=== PATIENT | female | born 1985 | race African-American/Black ===

== ENCOUNTER 2019-12-20 09:49 | Emergency (ER) | payer OTHER ==
[2019-12-20 10:08] VITALS: BMI 30.4
[2019-12-20] MEDS ORDERED: KETOROLAC TROMETHAMINE 60 MG/2 ML VIAL IM ONE (11:07)
[2019-12-20] MEDS ORDERED: diazePAM 2 MG TABLET PO ONE (11:07)
[2019-12-20] MEDS ORDERED: LIDOCAINE 5% TOPICAL PATCH TP ONE (11:07)
[2019-12-20] MEDS ORDERED: KETOROLAC TROMETHAMINE 30 MG/1 ML VIAL ONE (11:11)
[2019-12-20] MEDS ORDERED: diazePAM 2 MG TABLET ONE (11:11)
[2019-12-20] MEDS ORDERED: LIDOCAINE 5% TOPICAL PATCH ONE (11:11)
--- NOTE | 2019-12-20 12:38 | PDOC ---
History of Present Illness - General Chief Complaint: Back Pain Stated Complaint: BACK PAIN Time Seen by Provider: 12/20/19 10:06 History Source: Patient Exam Limitations: No Limitations Past History - Travel History Traveled outside of the country in the last 30 days: No Close contact w/someone who was outside of country & ill: No - Medical History Allergies/Adverse Reactions: Allergies Allergy/AdvReac Type Severity Reaction Status Date / Time shrimp AdvReac Severe Difficulty Verified 12/20/19 10:26 Breathing Home Medications: Ambulatory Orders Meloxicam [Mobic (Nf) -] 15 mg PO ASDIR 12/20/19 Methocarbamol [Robaxin -] 500 mg PO BID #14 tablet 12/20/19 Naproxen [Naprosyn -] 500 mg PO BID PRN 12/20/19 Asthma: Yes COPD: No GI Disorders: Yes (REFLUX) - Reproductive History Is Patient Now?: No - Psycho-Social/Smoking History Smoking Status: No Smoking History: Never smoked Number of Cigarettes Smoked Daily: 0 - Substance Abuse Hx (Audit-C & DAST Scrn) How often the patient has a drink containing alcohol: Monthly or less Score: In Men: 4 or > Positive; In Women: 3 or > Positive: 1 Screen Result (Pos requires Nsg. Audit-10AR): Negative In the last yr the pt used illegal drug/Rx for NonMed reason: No Score: Yes response is considered Positive: 0 Screen Result (Positive result requires Nsg. DAST-10): Negative Review of Systems - Review of Systems Able to Perform ROS?: Yes Comments:: 12/20/19 14:11 CONSTITUTIONAL: Absent: fever, chills, diaphoresis, generalized weakness, malaise, loss of appetite CARDIOVASCULAR: Absent: chest pain, loss of consciousness, palpitations, irregular heart rate, peripheral edema RESPIRATORY: Absent: cough, shortness of breath, dyspnea with exertion, orthopnea, wheezing, stridor, hemoptysis MUSCULOSKELETAL: Present: Left-sided back pain absent: myalgia, arthralgia, joint swelling SKIN: Absent: rash, itching, pallor NEUROLOGIC: Absent: headache, focal weakness or paresthesias, dizziness, unsteady gait, seizure, mental status changes, bladder or bowel incontinence PSYCHIATRIC: Absent: anxiety, depression, suicidal or homicidal ideation, hallucinations. Is the patient limited Icelandic proficient: No *Physical Exam - Vital Signs Last Vital Signs Temp Pulse Resp BP Pulse Ox 98.7 F 90 18 116/78 99 12/20/19 09:53 12/20/19 09:53 12/20/19 09:53 12/20/19 09:53 12/20/19 09:53 - Physical Exam 12/20/19 14:12 GENERAL: Well developed, well nourished. Awake and alert. No acute distress. HEENT: Normocephalic, atraumatic. PERRLA, EOMI. No conjunctival pallor. Sclera are non- icteric. Moist mucous membranes. NECK: Supple. Full ROM. No JVD. No lymphadenopathy. CARDIOVASCULAR: Regular rate and rhythm. No murmurs, rubs, or gallops. Distal pulses are 2+ and symmetric. PULMONARY: No evidence of respiratory distress. Lungs clear to auscultation bilaterally. No wheezing, rales or rhonchi. MUSCULOSKELETAL Tenderness palpation at the left scapula into the left axilla. Palpable spasm felt at the left scapula. Normal range of motion at all joints. No bony deformities or tenderness. No CVA tenderness. EXTREMITIES: No cyanosis. No clubbing. No edema. No calf tenderness. SKIN: Warm and dry. Normal capillary refill. No rashes. No jaundice. NEUROLOGICAL: Alert, awake, appropriate. Cranial nerves 2-12 intact. No deficits to light touch and temperature in face, upper extremities and lower extremities. No motor deficits in the in face, upper extremities and lower extremities. Normoreflexic in the upper and lower extremities. Normal speech. Toes are down-going bilaterally. Gait is normal without ataxia. PSYCHIATRIC: Cooperative. Good eye contact. Appropriate mood and affect. ED Treatment Course - RADIOLOGY Radiology Studies Ordered: Category Date Time Status CHEST PA & LAT [RAD] Stat Radiology 12/20/19 11:06 Taken SPINE-THORACIC [RAD] Stat Radiology 12/20/19 11:06 Taken - Medications Given in the ED: ED Medications Discontinued Medications Generic Name Dose Route Start Last Admin Trade Name Freq PRN Reason Stop Dose Admin Diazepam 2 mg 12/20/19 11:07 12/20/19 11:23 Valium - PO 12/20/19 11:08 2 mg ONCE ONE Administration Ketorolac Tromethamine 30 mg 12/20/19 11:07 12/20/19 11:22 Toradol Injection - IM 12/20/19 11:08 30 mg ONCE ONE Administration Lidocaine 1 patch 12/20/19 11:07 12/20/19 11:22 Lidoderm Patch - TP 12/20/19 11:08 1 patch ONCE ONE Administration Medical Decision Making - Medical Decision Making 12/20/19 12:59 The patient is a 34-year-old female no past medical history, who presents to the ER with left-sided back pain since August. She states that she has seen her primary care doctor for the pain and was prescribed naproxen which has not helped her symptoms. She states that the pain is constant however does fluctuate in intensity. She states she recently started meloxicam for the pain which has helped a little bit however when she woke up this morning the pain was worse so she came to the ER for evaluation. She denies any trauma. She does note that just before the pain started in August her desk collapsed on her and she thinks it may have jerked her left arm. The patient is right-hand dominant. Denies numbness and tingling weakness the affected extremity. A/P: Left-sided back pain. On exam patient has tenderness palpation over the left scapula, following the rhomboid. Tenderness palpation to the left axilla. X-rays of the back and chest ordered EKG: Rate 93 bpm, normal sinus rhythm. Normal intervals and axis. No acute ST- T wave changes. Overall normal ECG. Valium, Toradol, lidocaine patch given with relief of symptoms. Given that pain is reproducible likely musculoskeletal in nature. Re-evaluate 12/20/19 13:58 Still pending patient's chest x-ray read. Concerned over the diaphragm/hypodensity around the heart. Image was sent to imaging assistant construction superintendent. Pain is resolved at this point after medication. Pt requesting discharge at this point and I will call her with her chest x-ray results when they return. Likely skill skeletal versus neurologic in nature. Unlikely ACS. Strict return precautions given. Also explained to patient if chest x-ray does show any findings she may have to return to the emergency room for further treatment. Patient is aware and states she will come back if the chest x-ray is concerning. I discussed the physical exam findings, ancillary test results and final diagnoses with the patient. I answered all of the patient's questions. The patient was satisfied with the care received and felt comfortable with the discharge plan and treatment plan. The Patient agrees to follow up with the primary care physician/specialist within 24-72 hours. Return precautions were given. Discharge - Discharge Information Problems reviewed: Yes Clinical Impression/Diagnosis: Back pain Qualifiers: Back pain location: thoracic back pain Chronicity: acute Back pain laterality: left Qualified Code(s): M54.6 - Pain in thoracic spine Condition: Stable Disposition: HOME - Admission No - Additional Discharge Information Prescriptions: Methocarbamol [Robaxin -] 500 mg PO BID #14 tablet - Follow up/Referral Referrals: Roby Jade MD [Primary Care Provider] - Claudio Clements MD [Staff Physician] - - Patient Discharge Instructions Patient Printed Discharge Instructions: DI for Thoracic Back Pain Additional Instructions: You were seen for your left-sided back pain today. It is most likely muscular in nature. Please take the Robaxin as directed. Continue taking your previously prescribed meloxicam. Do not drink or drive after taking these medications as they may make you drowsy. You may apply warm packs to the area. Your chest x-ray results are still pending. I will call you with the results later today. If there are any concerning findings you will need to return to the ER for further management. Return to the ER for worsening pain, chest pain, shortness of breath or difficulty breathing or if you have any changes in your symptoms. - Post Discharge Activity
[2019-12-20 14:17] VITALS: BP 110/64; PULSE 67; TEMP 98.5
--- NOTE | 2019-12-22 21:55 | EKG ---
Test Reason : Blood Pressure : / mmHG Vent. Rate : 093 BPM Atrial Rate : 093 BPM P-R Int : 164 ms QRS Dur : 084 ms QT Int : 342 ms P-R-T Axes : 058 -04 033 degrees QTc Int : 425 ms NORMAL SINUS RHYTHM POSSIBLE LEFT ATRIAL ENLARGEMENT BORDERLINE ECG WHEN COMPARED WITH ECG OF 10-JAN-2004 15:46, VENT. RATE HAS INCREASED BY 39 BPM Confirmed by KATELYNN VALDEZ MD ([id number]) on 12/22/2019 9:54:44 PM Referred By: Confirmed By:KATELYNN VALDEZ MD
== END 2019-12-20 14:17 | disposition home or self-care (01) ==
LOC: JER 09:49
PROC: 3E0233Z Introduction of Anti-inflammatory into Muscle, Percutaneous Approach (ICD-10-PCS; principal; 2019-12-20)
DX: M54.6 Pain in thoracic spine (principal)
CPT/HCPCS: 71046-TC-FY; 72070-TC-FY; 93005; 93010; 99285-25

== ENCOUNTER 2020-12-20 18:38 | Emergency (ER) | payer OTHER ==
[2020-12-20 19:00] VITALS: BP 134/85; PULSE 94; TEMP 97.8; BMI 29.7
[2020-12-20 21:40] LABS: URINE APPEARANCE CLOUDY; URINE BILIRUBIN NEGATIVE (NEGATIVE); URINE COLOR YELLOW; URINE GLUCOSE (UA) NEGATIVE (NEGATIVE); URINE KETONE TRACE (NEGATIVE); URINE LEUK ESTERASE NEGATIVE (NEGATIVE); URINE NITRITE NEGATIVE (NEGATIVE); URINE PROTEIN NEGATIVE (NEGATIVE); URINE UROBILINOGEN 0.2 mg/dL (0.2-1.0)
== END 2020-12-20 23:49 | disposition home or self-care (01) ==
LOC: JER 18:38
DX: N83.201 Unspecified ovarian cyst, right side (principal)
CPT/HCPCS: 76830-TC; 81003; 84703; 87086; 99284-25

== ENCOUNTER 2021-08-20 08:29 | Emergency (ER) | payer OTHER ==
[2021-08-20 08:41] VITALS: BP 116/71; PULSE 74; TEMP 97.9; BMI 30.4
[2021-08-20] MEDS ORDERED: KETOROLAC TROMETHAMINE 30 MG/1 ML VIAL IVPUSH ONE (09:26)
[2021-08-20] MEDS ORDERED: METOCLOPRAMIDE HCL INJECTION 10 MG/2 ML VIAL IVPUSH ONE (09:26)
[2021-08-20] MEDS ORDERED: SODIUM CHLORIDE 0.9% 500 ML INFUS.BAG IV ONE (09:26)
[2021-08-20] MEDS ORDERED: METOCLOPRAMIDE HCL INJECTION 10 MG/2 ML VIAL ONE (09:32)
[2021-08-20] MEDS ORDERED: KETOROLAC TROMETHAMINE 30 MG/1 ML VIAL ONE ×2 (09:32→09:40)
[2021-08-20 10:27] LABS: BASO % 0.5 % (0-2.0); HEMATOCRIT 31.7 % (32.4-45.2); HEMOGLOBIN 10.3 GM/dL (10.7-15.3); LYMPH % 38.7 % (8-40); MCHC 32.4 g/dl (32.0-36.0); MEAN CELL VOLUME 71.1 fl (80-96); MEAN PLT VOLUME 8.3 fl (7.5-11.1); MONO % 5.9 % (3.8-10.2); NEUT % 53.9 % (42.8-82.8); PLATELET COUNT 321 10^3/uL (134-434); RBC 4.46 M/mm3 (3.60-5.2); RDW 17.2 % (11.6-15.6); WHITE BLOOD COUNT 6.5 K/mm3 (4.0-10.0)
[2021-08-20 10:44] LABS: CALCIUM 9.2 mg/dL (8.5-10.1)
[2021-08-20 10:45] LABS: ALBUMIN 3.4 g/dl (3.4-5.0); BLOOD UREA NITROGEN 11.1 mg/dL (7-18)
[2021-08-20 10:48] LABS: CREATININE 0.8 mg/dL (0.55-1.3)
[2021-08-20 10:49] LABS: BILIRUBIN,TOTAL 0.5 mg/dL (0.2-1); TOT PROT 7.3 g/dl (6.4-8.2)
== END 2021-08-20 11:40 | disposition home or self-care (01) ==
LOC: JER 08:29
PROC: 3E0333Z Introduction of Anti-inflammatory into Peripheral Vein, Percutaneous Approach (ICD-10-PCS; principal; 2021-08-20)
PROC: 3E033GC Introduction of Other Therapeutic Substance into Peripheral Vein, Percutaneous Approach (ICD-10-PCS; 2021-08-20)
DX: R51.9 Headache, unspecified (principal)
CPT/HCPCS: 36415; 80053; 85025; 99284-25

== ENCOUNTER 2022-06-18 08:18 | Emergency (ER) | payer OTHER ==
[2022-06-18 08:22] VITALS: BP 128/83; PULSE 94; RESP 18; TEMP 98.1; BMI 30.4
[2022-06-18] MEDS ORDERED: ACETAMINOPHEN 325 MG TABLET (FP) PO ONE (09:25)
[2022-06-18] MEDS ORDERED: LIDOCAINE 5% TOPICAL PATCH TP ONE (09:25)
[2022-06-18] MEDS ORDERED: LIDOCAINE 5% TOPICAL PATCH ONE (09:33)
[2022-06-18] MEDS ORDERED: ACETAMINOPHEN 325 MG TABLET (FP) ONE (09:33)
[2022-06-18] MEDS ORDERED: LIDOCAINE PATCH REMOVAL MC SCH (22:00)
== END 2022-06-18 10:48 | disposition home or self-care (01) ==
LOC: JER 08:18
DX: M54.6 Pain in thoracic spine (principal)
CPT/HCPCS: 99283-25

== ENCOUNTER 2023-04-01 09:32 | Emergency (ER) | payer OTHER ==
[2023-04-01 09:42] VITALS: RESP 18; BMI 31.3
[2023-04-01 11:55] LABS: PH,URINE 5.5 (5.0-8.0); URINE APPEARANCE CLOUDY; URINE BILIRUBIN NEGATIVE (NEGATIVE); URINE COLOR DK YELLOW; URINE GLUCOSE (UA) NEGATIVE (NEGATIVE); URINE KETONE TRACE (NEGATIVE); URINE LEUK ESTERASE NEGATIVE (NEGATIVE); URINE NITRITE NEGATIVE (NEGATIVE); URINE PROTEIN TRACE (NEGATIVE); URINE UROBILINOGEN 0.2 mg/dL (0.2-1.0)
[2023-04-01 11:57] LABS: HCG,QUALITATIVE URINE Negative
[2023-04-01] MEDS ORDERED: IBUPROFEN 600 MG TABLET (FP) PO ONE ×2 (11:58→12:10)
[2023-04-01] MEDS ORDERED: ACETAMINOPHEN 500 MG TABLET (FP) PO ONE (11:58)
[2023-04-01] MEDS ORDERED: FLUCONAZOLE 150 MG TABLET PO ONE ×2 (11:59→12:11)
[2023-04-01] MEDS ORDERED: ACETAMINOPHEN 500 MG TABLET (FP) ONE (12:10)
[2023-04-01 13:53] VITALS: BP 104/71; PULSE 77; TEMP 98.1
== END 2023-04-01 13:53 | disposition home or self-care (01) ==
LOC: JER 09:32
DX: N76.0 Acute vaginitis (principal)
CPT/HCPCS: 81003; 84703; 87070; 87086; 87205; 99283-25